=== PATIENT | male | born 1940 | race Caucasian/White ===

== ENCOUNTER 2022-05-19 11:43 | Observation (INO) | payer OTHER, MEDICARE ==
[2022-05-19 12:13] VITALS: BMI 20.9
[2022-05-19] MEDS ORDERED: ONDANSETRON 4 MG/2 ML VIAL IVPB ONE (14:03)
[2022-05-19] MEDS ORDERED: FAMOTIDINE 20 MG/50 ML IVPB 20 MG in PREMIX 50 IVPB ONE (14:03)
[2022-05-19] MEDS ORDERED: MAG HYDROX/AL HYDROX/SIMETH -MYLANTA- ORAL SUSPENSION PO ONE (14:03)
[2022-05-19] MEDS ORDERED: MAG HYDROX/AL HYDROX/SIMETH 30 ML UNIT-DOSE CUP ONE (14:09)
[2022-05-19] MEDS ORDERED: ONDANSETRON 4 MG/2 ML VIAL ONE (14:09)
[2022-05-19] MEDS ORDERED: FAMOTIDINE 20 MG/50 ML IVPB 20 MG/50 ML MG IVPB ONE (14:09)
[2022-05-19 14:41] LABS: BASO % 0.3 % (0-2.0); EOS % 0.5 % (0-4.5); HEMATOCRIT 41.9 % (35.4-49); HEMOGLOBIN 14.2 GM/dL (11.7-16.9); LYMPH % 20.8 % (8-40); MCH 31.9 pg (25.7-33.7); MCHC 33.9 g/dl (32.0-35.9); MEAN CELL VOLUME 94.1 fl (80-96); MEAN PLT VOLUME 10.8 fl (7.5-11.1); MONO % 7.1 % (3.8-10.2); NEUT % 71.3 % (42.8-82.8); PLATELET COUNT 104 10^3/uL (134-434); RBC 4.46 M/mm3 (4.00-5.60); WHITE BLOOD COUNT 6.6 K/mm3 (4.0-10.0)
[2022-05-19 15:04] LABS: BLOOD UREA NITROGEN 21.9 mg/dL (7-18); CALCIUM 9.3 mg/dL (8.5-10.1)
[2022-05-19 15:05] LABS: ALBUMIN 3.6 g/dl (3.4-5.0)
[2022-05-19 15:07] LABS: CREATININE 0.7 mg/dL (0.55-1.3)
[2022-05-19 15:08] LABS: PHOSPHOROUS 3.2 mg/dL (2.5-4.9)
[2022-05-19 15:09] LABS: BILIRUBIN,TOTAL 0.4 mg/dL (0.2-1); TOT PROT 6.7 g/dl (6.4-8.2)
[2022-05-19 18:54] LABS: URINE APPEARANCE CLEAR; URINE BILIRUBIN NEGATIVE (NEGATIVE); URINE COLOR YELLOW; URINE GLUCOSE (UA) NEGATIVE (NEGATIVE); URINE KETONE NEGATIVE (NEGATIVE); URINE LEUK ESTERASE NEGATIVE (NEGATIVE); URINE NITRITE NEGATIVE (NEGATIVE); URINE PROTEIN NEGATIVE (NEGATIVE); URINE UROBILINOGEN 0.2 mg/dL (0.2-1.0)
[2022-05-19] MEDS ORDERED: LACTATED RINGERS SOLUTION 1,000 ML/1,000 ML INFUS.BAG IV SCH (19:30)
[2022-05-19] MEDS ORDERED: TIMOLOL 0.5% OPHTHALMIC SOL 5 ML BOTTLE OD SCH (22:00)
[2022-05-19] MEDS ORDERED: ATORVASTATIN CA 40 MG TABLET (FP) PO SCH (22:00)
[2022-05-19] MEDS ORDERED: PATIENT'S OWN MEDICATION (NON-FORMULARY) (Latanoprost/Pf [Latanoprost 0.005% Eye Drop] 7.5 OP SCH (22:00)
[2022-05-19] MEDS ORDERED: ETHOSUXIMIDE 250 MG PO SCH (22:15)
[2022-05-19] MEDS ORDERED: PATIENT'S OWN MEDICATION (NON-FORMULARY) (Valproic Acid [Valproic Acid] 250 MG Capsule) PO SCH (22:15)
[2022-05-19] MEDS ORDERED: PHENYTOIN NA EXTENDED 100 MG CAPSULE (FP) ONE (23:47)
[2022-05-19] MEDS ORDERED: ATORVASTATIN CA 40 MG TABLET (FP) ONE (23:47)
[2022-05-20] MEDS ORDERED: VALPROIC ACID 250 MG CAPSULE PO ONE (00:13)
[2022-05-20] MEDS: PHENYTOIN NA EXTENDED 100 MG CAPSULE (FP) PO SCH ×2 (01:26→09:27)
[2022-05-20] MEDS: TIMOLOL 0.5% OPHTHALMIC SOL 5 ML BOTTLE OD SCH ×3 (01:27→11:21)
[2022-05-20 01:31] VITALS: RESP 18; TEMP 98.2
[2022-05-20] MEDS ORDERED: VALPROIC ACID 250 MG CAPSULE PO SCH ×2 (06:00→14:00)
[2022-05-20 08:08] LABS: BASO % 0.5 % (0-2.0); EOS % 0.2 % (0-4.5); HEMATOCRIT 35.5 % (35.4-49); HEMOGLOBIN 12.4 GM/dL (11.7-16.9); LYMPH % 42.2 % (8-40); MCH 32.6 pg (25.7-33.7); MEAN CELL VOLUME 93.2 fl (80-96); MEAN PLT VOLUME 10.6 fl (7.5-11.1); MONO % 6.4 % (3.8-10.2); NEUT % 50.7 % (42.8-82.8); PLATELET COUNT 92 10^3/uL (134-434); RDW 12.9 % (11.9-15.9); WHITE BLOOD COUNT 4.9 K/mm3 (4.0-10.0)
[2022-05-20 08:36] LABS: TOT PROT 5.6 g/dl (6.4-8.2)
[2022-05-20 08:37] LABS: BILIRUBIN,TOTAL 0.5 mg/dL (0.2-1); CALCIUM 8.9 mg/dL (8.5-10.1)
[2022-05-20 08:38] LABS: CREATININE 0.7 mg/dL (0.55-1.3); PHOSPHOROUS 3.4 mg/dL (2.5-4.9)
[2022-05-20 08:39] LABS: BLOOD UREA NITROGEN 11.8 mg/dL (7-18)
[2022-05-20 08:41] LABS: MAGNESIUM 2.1 mg/dL (1.8-2.4)
[2022-05-20] MEDS ORDERED: PHENYTOIN NA EXTENDED 100 MG CAPSULE (FP) ONE (09:26)
[2022-05-20] MEDS ORDERED: ASPIRIN 81 MG CHEWABLE TABLETS ONE (09:26)
[2022-05-20] MEDS ORDERED: TAMSULOSIN HCL 0.4 MG CAP ONE (09:26)
[2022-05-20] MEDS ORDERED: CHOLECALCIFEROL (VIT D3) 1,000 UNIT (25 MCG) TABLET ONE (09:26)
[2022-05-20] MEDS: RAMIPRIL 2.5 MG CAPSULE PO SCH ×2 (09:27→11:23)
[2022-05-20] MEDS: TAMSULOSIN HCL 0.4 MG CAP PO SCH ×2 (09:27→11:22)
[2022-05-20] MEDS: ASPIRIN 81 MG CHEWABLE TABLETS PO SCH ×2 (09:27→11:23)
[2022-05-20] MEDS: CHOLECALCIFEROL (VIT D3) 1,000 UNIT (25 MCG) TABLET PO SCH ×2 (09:28→11:23)
[2022-05-20 09:42] VITALS: BP 111/68; PULSE 64
[2022-05-20] MEDS ORDERED: ARTIFICIAL TEARS (POLYVINYL ALCOHOL) OPTH DROPS OU SCH (10:00)
[2022-05-20] MEDS ORDERED: CEFTRIAXONE 2 GM/100 ML BAG IVPB ONE ×2 (10:09→11:28)
[2022-05-20] MEDS ORDERED: PATIENT'S OWN MEDICATION (NON-FORMULARY) (Valproic Acid [Valproic Acid] 250 MG Capsule) PO SCH (14:00)
[2022-05-20] MEDS ORDERED: ETHOSUXIMIDE 250 MG PO SCH ×3 (14:00→22:00)
[2022-05-20] MEDS ORDERED: LATANOPROST 0.005% OPHTH SOLN 2.5ML BOTTLE OU SCH (22:00)
[2022-05-21] MEDS ORDERED: ETHOSUXIMIDE 250 MG PO SCH (06:00)
== END 2022-05-20 14:15 | disposition home or self-care (01) ==
LOC: JER 11:43 → UNDOADMOB 16:21 → INTOOBSV 16:21 → JERBED 16:21
PROVIDERS: ADMIT Internal Medicine; ATTEND Nurse Practitioner Family
PROC: 3E033GC Introduction of Other Therapeutic Substance into Peripheral Vein, Percutaneous Approach (ICD-10-PCS; principal; 2022-05-19)
PROC: 3E0337Z Introduction of Electrolytic and Water Balance Substance into Peripheral Vein, Percutaneous Approach (ICD-10-PCS; 2022-05-19)
PROC: 3E033GC Introduction of Other Therapeutic Substance into Peripheral Vein, Percutaneous Approach (ICD-10-PCS; 2022-05-19)
DX: I25.10 Atherosclerotic heart disease of native coronary artery without angina pectoris (principal); C91.10 Chronic lymphocytic leukemia of B-cell type not having achieved remission; G40.909 Epilepsy, unspecified, not intractable, without status epilepticus; Z91.013 Allergy to seafood
CPT/HCPCS: 0241U-QW; 36415; 74177-TC; 80053; 80164; 80185; 81003; 83690; 83735; 84100; 84443; 84484; 85025; 93005; 93010; 96361; 96365; 96375; 97116-GP; 97162-GP; 99285-25; G0378; Q9967

== ENCOUNTER 2023-04-07 09:06 | Inpatient (IN) | payer OTHER, MEDICARE ==
[2023-04-07 11:01] LABS: INR 0.97 (0.83-1.09); PROTHROMBIN TIME (PATIENT) 11.3 SEC (9.7-13.0)
[2023-04-07 11:03] LABS: BASO % 0.3 % (0-2.0); EOS % 0.5 % (0-4.5); HEMATOCRIT 32.1 % (35.4-49); HEMOGLOBIN 11.4 GM/dL (11.7-16.9); MCH 33.2 pg (25.7-33.7); MCHC 35.6 g/dl (32.0-35.9); MEAN CELL VOLUME 93.2 fl (80-96); MEAN PLT VOLUME 9.9 fl (7.5-11.1); MONO % 7.5 % (3.8-10.2); NEUT % 50.7 % (42.8-82.8); PLATELET COUNT 98 10^3/uL (134-434); RBC 3.44 M/mm3 (4.00-5.60); WHITE BLOOD COUNT 6.3 K/mm3 (4.0-10.0)
[2023-04-07 11:04] LABS: ACTIVATED PTT 30.4 SECONDS (25.2-36.5)
[2023-04-07 11:24] LABS: POTASSIUM 4.9 mmol/L (3.5-5.1)
[2023-04-07 11:26] LABS: ALBUMIN 2.9 g/dl (3.4-5.0); BLOOD UREA NITROGEN 23.2 mg/dL (7-18); CALCIUM 8.6 mg/dL (8.5-10.1)
[2023-04-07 11:30] LABS: CREATININE 0.9 mg/dL (0.55-1.3)
[2023-04-07 11:32] LABS: BILIRUBIN,TOTAL 0.6 mg/dL (0.2-1); TOT PROT 5.5 g/dl (6.4-8.2)
[2023-04-07] MEDS ORDERED: LABETALOL HCL 20 MG/4 ML VIAL ONE (11:44)
[2023-04-07] MEDS ORDERED: NICARDIPINE 25 MG in DEXTROSE 5%-WATER - 240 ML IVPB SCH (11:45)
[2023-04-07] MEDS ORDERED: VALPROIC ACID 250 MG CAPSULE PO SCH (14:00)
[2023-04-07] MEDS: LATANOPROST 0.005% OPHTH SOLN 2.5ML BOTTLE OU SCH (21:34)
[2023-04-07] MEDS: PHENYTOIN NA EXTENDED 100 MG CAPSULE (FP) PO SCH (21:35)
[2023-04-07] MEDS: CHLORHEXIDINE GLUCONATE 4% CLEANSER FOR DECOLONIZATION TP SCH (21:35)
[2023-04-07] MEDS: MUPIROCIN 2% TOPICAL OINTMENT FOR DECOLONIZATION NS SCH (21:35)
[2023-04-07] MEDS: ATORVASTATIN CA 40 MG TABLET (FP) PO SCH (21:35)
[2023-04-07] MEDS: TIMOLOL 0.5% OPHTHALMIC SOL 5 ML BOTTLE OD SCH (21:35)
[2023-04-07] MEDS: VALPROIC ACID 250 MG CAPSULE PO SCH (21:36)
[2023-04-07] MEDS ORDERED: ETHOSUXIMIDE 250 MG PO SCH (22:00)
[2023-04-08] MEDS: PHENYTOIN NA EXTENDED 100 MG CAPSULE (FP) PO SCH ×3 (05:47→21:05)
[2023-04-08] MEDS: ACETAMINOPHEN 325 MG TABLET (FP) PO PRN (05:52)
[2023-04-08] MEDS ORDERED: VALPROIC ACID 250 MG CAPSULE PO SCH ×2 (06:00)
[2023-04-08 07:33] LABS: HEMATOCRIT 34.9 % (35.4-49); HEMOGLOBIN 11.7 GM/dL (11.7-16.9); MCH 32.1 pg (25.7-33.7); MCHC 33.6 g/dl (32.0-35.9); MEAN CELL VOLUME 95.6 fl (80-96); PLATELET COUNT 120 10^3/uL (134-434); RBC 3.65 M/mm3 (4.00-5.60); WHITE BLOOD COUNT 7.1 K/mm3 (4.0-10.0)
[2023-04-08 07:37] LABS: INR 1.01 (0.83-1.09); PROTHROMBIN TIME (PATIENT) 11.7 SEC (9.7-13.0)
[2023-04-08 07:40] LABS: ACTIVATED PTT 30.3 SECONDS (25.2-36.5)
[2023-04-08 07:47] LABS: POTASSIUM 4.4 mmol/L (3.5-5.1)
[2023-04-08 07:53] LABS: CALCIUM 8.7 mg/dL (8.5-10.1)
[2023-04-08 07:54] LABS: ALBUMIN 2.8 g/dl (3.4-5.0); BLOOD UREA NITROGEN 16.4 mg/dL (7-18); MAGNESIUM 2.1 mg/dL (1.8-2.4)
[2023-04-08 07:57] LABS: CREATININE 0.8 mg/dL (0.55-1.3); PHOSPHOROUS 3.9 mg/dL (2.5-4.9)
[2023-04-08 07:58] LABS: BILIRUBIN,TOTAL 0.7 mg/dL (0.2-1); TOT PROT 5.8 g/dl (6.4-8.2)
[2023-04-08] MEDS: TAMSULOSIN HCL 0.4 MG CAP PO SCH (09:43)
[2023-04-08] MEDS ORDERED: ASPIRIN 81 MG CHEWABLE TABLETS PO SCH (10:00)
[2023-04-08] MEDS: RAMIPRIL 2.5 MG CAPSULE PO SCH (10:54)
[2023-04-08] MEDS: TIMOLOL 0.5% OPHTHALMIC SOL 5 ML BOTTLE OD SCH ×2 (10:55→21:04)
[2023-04-08] MEDS: MUPIROCIN 2% TOPICAL OINTMENT FOR DECOLONIZATION NS SCH ×2 (10:55→21:03)
[2023-04-08] MEDS ORDERED: ETHOSUXIMIDE 250 MG PO SCH (14:00)
[2023-04-08] MEDS: VALPROIC ACID 250 MG CAPSULE PO SCH ×2 (14:24→21:04)
[2023-04-08] MEDS: ETHOSUXIMIDE 250 MG PO SCH ×3 (15:02→21:05)
[2023-04-08] MEDS ORDERED: LIDOCAINE 4% PATCH TP ONE (15:08)
[2023-04-08 16:58] LABS: URINE APPEARANCE Clear; URINE BILIRUBIN Negative (NEGATIVE); URINE COLOR Yellow; URINE GLUCOSE (UA) Negative (NEGATIVE); URINE KETONE Trace (NEGATIVE); URINE LEUK ESTERASE Negative (NEGATIVE); URINE NITRITE Negative (NEGATIVE); URINE PROTEIN Negative (NEGATIVE); URINE UROBILINOGEN >=8.0 E.U./dl mg/dL (0.2-1.0)
[2023-04-08] MEDS: ATORVASTATIN CA 40 MG TABLET (FP) PO SCH (21:03)
[2023-04-08] MEDS: LATANOPROST 0.005% OPHTH SOLN 2.5ML BOTTLE OU SCH (21:03)
[2023-04-08] MEDS: CHLORHEXIDINE GLUCONATE 4% CLEANSER FOR DECOLONIZATION TP SCH (21:05)
[2023-04-08] MEDS ORDERED: LIDOCAINE PATCH REMOVAL MC SCH (22:00)
[2023-04-08] MEDS ORDERED: FLU VACCINE (FLULAVAL) PF 60 MCG/0.5 ML SYRINGE 2023-2024 IM ONE (22:15)
[2023-04-09] MEDS: ETHOSUXIMIDE 250 MG PO SCH ×4 (06:07→21:06)
[2023-04-09] MEDS: PHENYTOIN NA EXTENDED 100 MG CAPSULE (FP) PO SCH ×3 (06:07→21:06)
[2023-04-09] MEDS: MUPIROCIN 2% TOPICAL OINTMENT FOR DECOLONIZATION NS SCH ×2 (10:00→21:06)
[2023-04-09] MEDS: TAMSULOSIN HCL 0.4 MG CAP PO SCH (10:00)
[2023-04-09] MEDS: RAMIPRIL 2.5 MG CAPSULE PO SCH (10:00)
[2023-04-09] MEDS: TIMOLOL 0.5% OPHTHALMIC SOL 5 ML BOTTLE OD SCH ×2 (10:01→21:09)
[2023-04-09] MEDS: VALPROIC ACID 250 MG CAPSULE PO SCH ×2 (14:46→21:06)
[2023-04-09] MEDS: ACETAMINOPHEN 325 MG TABLET (FP) PO PRN (15:52)
[2023-04-09] MEDS ORDERED: ACETAMINOPHEN 1000 MG/100 ML BAG IVPB ONE (16:25)
[2023-04-09] MEDS ORDERED: ARTIFICIAL TEARS (POLYVINYL ALCOHOL) OPTH DROPS OU PRN (20:14)
[2023-04-09] MEDS: DOCUSATE SODIUM 100 MG CAPSULE (FP) PO SCH (21:05)
[2023-04-09] MEDS: POLYETHYLENE GLYCOL (HEALTHYLAX) 3350 17 GM PACKET PO SCH (21:05)
[2023-04-09] MEDS: ATORVASTATIN CA 40 MG TABLET (FP) PO SCH (21:06)
[2023-04-09] MEDS: CHLORHEXIDINE GLUCONATE 4% CLEANSER FOR DECOLONIZATION TP SCH (21:07)
[2023-04-09] MEDS: LATANOPROST 0.005% OPHTH SOLN 2.5ML BOTTLE OU SCH (21:10)
[2023-04-10] MEDS: PHENYTOIN NA EXTENDED 100 MG CAPSULE (FP) PO SCH ×3 (06:09→21:51)
[2023-04-10] MEDS: ETHOSUXIMIDE 250 MG PO SCH ×5 (06:09→21:53)
[2023-04-10] MEDS: ACETAMINOPHEN 325 MG TABLET (FP) PO PRN ×3 (06:19→22:10)
[2023-04-10] MEDS: POLYETHYLENE GLYCOL (HEALTHYLAX) 3350 17 GM PACKET PO SCH ×2 (09:48→21:54)
[2023-04-10] MEDS: TAMSULOSIN HCL 0.4 MG CAP PO SCH (09:49)
[2023-04-10] MEDS: TIMOLOL 0.5% OPHTHALMIC SOL 5 ML BOTTLE OD SCH ×2 (09:49→21:56)
[2023-04-10] MEDS: RAMIPRIL 2.5 MG CAPSULE PO SCH (09:49)
[2023-04-10] MEDS: DOCUSATE SODIUM 100 MG CAPSULE (FP) PO SCH ×2 (09:49→21:51)
[2023-04-10] MEDS: MUPIROCIN 2% TOPICAL OINTMENT FOR DECOLONIZATION NS SCH (09:49)
[2023-04-10 11:17] LABS: BASO % 0.4 % (0-2.0); EOS % 0.1 % (0-4.5); HEMATOCRIT 34.7 % (35.4-49); HEMOGLOBIN 11.8 GM/dL (11.7-16.9); LYMPH % 29.6 % (8-40); MCH 32.3 pg (25.7-33.7); MCHC 34.1 g/dl (32.0-35.9); MEAN CELL VOLUME 94.5 fl (80-96); MEAN PLT VOLUME 9.5 fl (7.5-11.1); MONO % 12.3 % (3.8-10.2); NEUT % 57.6 % (42.8-82.8); PLATELET COUNT 127 10^3/uL (134-434); RBC 3.67 M/mm3 (4.00-5.60); RDW 14.8 % (11.9-15.9)
[2023-04-10 11:37] LABS: POTASSIUM 4.8 mmol/L (3.5-5.1)
[2023-04-10 11:39] LABS: CALCIUM 8.5 mg/dL (8.5-10.1)
[2023-04-10 11:40] LABS: ALBUMIN 2.5 g/dl (3.4-5.0); BLOOD UREA NITROGEN 18.2 mg/dL (7-18)
[2023-04-10 11:43] LABS: CREATININE 0.8 mg/dL (0.55-1.3)
[2023-04-10 11:44] LABS: BILIRUBIN,TOTAL 0.9 mg/dL (0.2-1)
[2023-04-10 11:45] LABS: TOT PROT 5.7 g/dl (6.4-8.2)
[2023-04-10] MEDS: VALPROIC ACID 250 MG CAPSULE PO SCH ×2 (13:23→21:54)
[2023-04-10] MEDS ORDERED: FLU VACCINE (FLULAVAL) PF 60 MCG/0.5 ML SYRINGE 2023-2024 IM ONE (14:15)
[2023-04-10] MEDS: ATORVASTATIN CA 40 MG TABLET (FP) PO SCH (21:51)
[2023-04-10] MEDS: LATANOPROST 0.005% OPHTH SOLN 2.5ML BOTTLE OU SCH (21:55)
[2023-04-10] MEDS ORDERED: CHLORHEXIDINE GLUCONATE 4% CLEANSER FOR DECOLONIZATION TP SCH (22:00)
[2023-04-10] MEDS ORDERED: MUPIROCIN 2% TOPICAL OINTMENT FOR DECOLONIZATION NS SCH (22:00)
[2023-04-11] MEDS: PHENYTOIN NA EXTENDED 100 MG CAPSULE (FP) PO SCH ×3 (06:04→21:45)
[2023-04-11] MEDS: ETHOSUXIMIDE 250 MG PO SCH ×4 (06:05→21:46)
[2023-04-11 09:15] LABS: BASO % 0.3 % (0-2.0); EOS % 0.1 % (0-4.5); HEMOGLOBIN 12.1 GM/dL (11.7-16.9); LYMPH % 26.1 % (8-40); MCH 32.8 pg (25.7-33.7); MCHC 34.6 g/dl (32.0-35.9); MEAN CELL VOLUME 94.8 fl (80-96); MEAN PLT VOLUME 9.6 fl (7.5-11.1); MONO % 9.4 % (3.8-10.2); NEUT % 64.1 % (42.8-82.8); PLATELET COUNT 146 10^3/uL (134-434); RBC 3.69 M/mm3 (4.00-5.60); RDW 14.6 % (11.9-15.9)
[2023-04-11 09:47] LABS: POTASSIUM 5.6 mmol/L (3.5-5.1)
[2023-04-11 09:49] LABS: BLOOD UREA NITROGEN 15.7 mg/dL (7-18); CALCIUM 8.7 mg/dL (8.5-10.1)
[2023-04-11 09:52] LABS: CREATININE 0.7 mg/dL (0.55-1.3)
[2023-04-11] MEDS: RAMIPRIL 2.5 MG CAPSULE PO SCH (10:01)
[2023-04-11] MEDS: TAMSULOSIN HCL 0.4 MG CAP PO SCH (10:02)
[2023-04-11] MEDS: TIMOLOL 0.5% OPHTHALMIC SOL 5 ML BOTTLE OD SCH ×2 (10:02→21:47)
[2023-04-11] MEDS: ACETAMINOPHEN 325 MG TABLET (FP) PO PRN ×2 (10:02→17:40)
[2023-04-11] MEDS: DOCUSATE SODIUM 100 MG CAPSULE (FP) PO SCH ×2 (10:02→21:45)
[2023-04-11] MEDS: POLYETHYLENE GLYCOL (HEALTHYLAX) 3350 17 GM PACKET PO SCH ×2 (10:02→21:45)
[2023-04-11] MEDS: VALPROIC ACID 250 MG CAPSULE PO SCH ×2 (14:43→21:47)
[2023-04-11] MEDS: ATORVASTATIN CA 40 MG TABLET (FP) PO SCH (21:46)
[2023-04-11] MEDS: LATANOPROST 0.005% OPHTH SOLN 2.5ML BOTTLE OU SCH (21:47)
[2023-04-12] MEDS: ETHOSUXIMIDE 250 MG PO SCH ×4 (06:14→22:05)
[2023-04-12] MEDS: PHENYTOIN NA EXTENDED 100 MG CAPSULE (FP) PO SCH ×3 (06:15→22:05)
[2023-04-12] MEDS: TAMSULOSIN HCL 0.4 MG CAP PO SCH (08:00)
[2023-04-12] MEDS: RAMIPRIL 2.5 MG CAPSULE PO SCH (09:27)
[2023-04-12] MEDS: DOCUSATE SODIUM 100 MG CAPSULE (FP) PO SCH ×2 (09:27→22:04)
[2023-04-12] MEDS: TIMOLOL 0.5% OPHTHALMIC SOL 5 ML BOTTLE OD SCH ×2 (09:29→22:08)
[2023-04-12 12:47] VITALS: BMI 19.6
[2023-04-12] MEDS: VALPROIC ACID 250 MG CAPSULE PO SCH ×2 (13:22→22:04)
[2023-04-12] MEDS: POLYETHYLENE GLYCOL (HEALTHYLAX) 3350 17 GM PACKET PO SCH ×2 (13:22→22:06)
[2023-04-12] MEDS: ATORVASTATIN CA 40 MG TABLET (FP) PO SCH (22:04)
[2023-04-12] MEDS: LATANOPROST 0.005% OPHTH SOLN 2.5ML BOTTLE OU SCH (22:08)
[2023-04-13] MEDS: PHENYTOIN NA EXTENDED 100 MG CAPSULE (FP) PO SCH ×2 (05:54→13:30)
[2023-04-13] MEDS: ETHOSUXIMIDE 250 MG PO SCH ×2 (06:09→13:38)
[2023-04-13] MEDS: POLYETHYLENE GLYCOL (HEALTHYLAX) 3350 17 GM PACKET PO SCH ×2 (09:18→09:34)
[2023-04-13] MEDS: DOCUSATE SODIUM 100 MG CAPSULE (FP) PO SCH (09:18)
[2023-04-13] MEDS: RAMIPRIL 2.5 MG CAPSULE PO SCH (09:18)
[2023-04-13] MEDS: TAMSULOSIN HCL 0.4 MG CAP PO SCH (09:18)
[2023-04-13] MEDS: TIMOLOL 0.5% OPHTHALMIC SOL 5 ML BOTTLE OD SCH (09:33)
[2023-04-13 13:27] VITALS: BP 120/60; PULSE 73; RESP 18; TEMP 98.5
[2023-04-13] MEDS: VALPROIC ACID 250 MG CAPSULE PO SCH (13:37)
== END 2023-04-13 15:00 | DRG 86 ==
LOC: JER 09:06 → JERBED 12:06 → JICU 13:37 → J8W 04-10 12:06
PROVIDERS: ADMIT Internal Medicine Pulmonary Disease; ATTEND Internal Medicine
DX: S06.6X0A Traumatic subarachnoid hemorrhage without loss of consciousness, initial encounter (principal); C91.10 Chronic lymphocytic leukemia of B-cell type not having achieved remission; S06.5X0A Traumatic subdural hemorrhage without loss of consciousness, initial encounter; I25.10 Atherosclerotic heart disease of native coronary artery without angina pectoris; G40.909 Epilepsy, unspecified, not intractable, without status epilepticus; S00.11XA Contusion of right eyelid and periocular area, initial encounter; I10 Essential (primary) hypertension; E78.5 Hyperlipidemia, unspecified; G20 Parkinson's disease; D69.6 Thrombocytopenia, unspecified; M25.511 Pain in right shoulder; W01.0XXA Fall on same level from slipping, tripping and stumbling without subsequent striking against object, initial encounter; Y92.098 Other place in other non-institutional residence as the place of occurrence of the external cause
CPT/HCPCS: 36415; 70450-TC; 70486-TC; 70496-TC; 70498-TC; 71045-TC-FY; 72125-TC; 72170-TC-FY; 73030-TC-RT-FY; 73070-TC-RT-FY; 73110-TC-RT-FY; 73130-TC-RT-FY; 73630-TC-LT; 80048; 80053; 80164; 80185; 81003; 83735; 84100; 84132; 84484; 85025; 85027; 85610; 85730; 86850; 86900; 86901; 87086; 87635; 90686; 93005; 93010; 97116-GP; 97162-GP; 99285-25; G0008; Q9967